=== PATIENT | male | born 1975 | race African-American/Black ===

== ENCOUNTER 2017-01-31 09:19 | Emergency (ER) | payer SELFPAY ==
[2017-01-31 09:29] LABS: BASOPHIL 0.2 % (0-2); EOSINOPHIL 0.4 % (0-5); HCT 42.6 % (42.0-52.0); HGB 14.3 g/dl (13.2-18.0); LYMPHOCYTE 23.3 % (15-48); MCH 30.2 pg (25.0-31.0); MCHC 33.6 g/dL (32.0-36.0); MCV 90.1 fL (78.0-100.0); MONOCYTE 8.8 % (0-12); MPV 9.2 fL (6.0-9.5); NEUTROPHIL 67.3 % (41-80); PLT 306 K/uL (150-400); RBC 4.73 M/uL (4.70-6.00); RDW 14.5 % (11.5-14.0); WBC 8.3 K/uL (4.0-10.5)
[2017-01-31 09:50] LABS: CREATININE 0.9 mg/dL (0.7-1.2); POTASSIUM 3.9 mmol/L (3.5-5.1)
== END 2017-01-31 10:56 | disposition home or self-care (01) ==
LOC: FER 09:19
PROVIDERS: Internal Medicine
DX: I10 Essential (primary) hypertension (principal); F17.200 Nicotine dependence, unspecified, uncomplicated
CPT/HCPCS: 36415; 71010; 80048; 85025; 93005; J1885

== ENCOUNTER 2021-01-27 09:37 | Emergency (ER) | payer OTHER ==
[~2021-01-27 09:37] MED LIST: BACLOFEN 10MG T10 MG PO; NAPROSYN500 MG PO; PRINIVIL20 MG PO
[2021-01-27 10:49] LABS: BASOPHIL 0.2 % (0-2); EOSINOPHIL 0.2 % (0-5); HCT 43.2 % (42.0-52.0); HGB 13.9 g/dl (13.2-18.0); LYMPHOCYTE 22.7 % (15-48); MCH 29.3 pg (25.0-31.0); MCHC 32.2 g/dL (32.0-36.0); MCV 91.1 fL (78.0-100.0); MONOCYTE 6.8 % (0-12); MPV 9.8 fL (6.0-9.5); NEUTROPHIL 69.2 % (41-80); NRBC 0; PLT 264 K/uL (150-400); RBC 4.74 M/uL (4.70-6.00); RDW 13.3 % (11.5-14.0); WBC 8.8 K/uL (4.0-10.5)
[2021-01-27 10:58] LABS: ALBUMIN 4.2 g/dL (3.4-5.0); BILIRUBIN - TOTAL 0.8 mg/dL (0.2-1.0); BUN/CREAT RATIO (CALC) 18.1 RATIO; CREATININE 0.94 mg/dL (0.67-1.17); POTASSIUM 3.9 mmol/L (3.5-5.1); TOTAL PROTEIN 7.2 g/dL (6.4-8.2)
[2021-01-27] MEDS ORDERED: PRINIVIL20 MG PO (11:31)
[2021-01-27] MEDS ORDERED: NORCO 5-325 TA1 EACH PO (11:31)
[2021-01-27 12:19] LABS: BILIRUBIN 1+ mg/dL (NEGATIVE); BLOOD 1+ Ery/uL (NEGATIVE); CLARITY CLEAR (CLEAR); COLOR YELLOW (YELLOW); GLUCOSE (U) NORMAL (NORMAL); LEUKOCYTES NEGATIVE Leu/uL (NEGATIVE); NITRITE NEGATIVE (NEGATIVE); PROTEIN NEGATIVE (NEGATIVE); SPECIFIC GRAVITY >=1.030 (1.001-1.030); pH 5.5 (5.0-9.0)
[2021-01-27 12:30] LABS: BACTERIA TRACE; SQUAMOUS EPITHELIAL CELLS RARE
== END 2021-01-27 11:59 | disposition home or self-care (01) ==
LOC: FER 09:37
PROVIDERS: Emergency Medicine
DX: I10 Essential (primary) hypertension (principal); R94.31 Abnormal electrocardiogram [ECG] [EKG]; M25.512 Pain in left shoulder; F17.200 Nicotine dependence, unspecified, uncomplicated; Z79.899 Other long term (current) drug therapy
CPT/HCPCS: 36415; 71045; 73030; 80053; 81001; 83880; 84484; 85025; 93005; J3490

== ENCOUNTER 2022-02-07 10:35 | Emergency (ER) | payer MEDICAID ==
[~2022-02-07 10:35] MED LIST changes: +NORCO 5-325 TA1 EACH PO
[2022-02-07 11:40] LABS: BASOPHIL 0.5 % (0-2); EOSINOPHIL 0.5 % (0-5); HCT 42.4 % (42.0-52.0); HGB 13.9 g/dl (13.2-18.0); LYMPHOCYTE 24.4 % (15-48); MCH 29.7 pg (25.0-31.0); MCHC 32.8 g/dL (32.0-36.0); MCV 90.6 fL (78.0-100.0); MONOCYTE 6.8 % (0-12); MPV 10.6 fL (6.0-9.5); NEUTROPHIL 67.6 % (41-80); NRBC 0; PLT 234 K/uL (150-400); RBC 4.68 M/uL (4.70-6.00); RDW 12.8 % (11.5-14.0); WBC 8.1 K/uL (4.0-10.5)
[2022-02-07 11:45] LABS: INR 0.99 (0.9-1.2); PROTHROMBIN TIME 12.5 SECONDS (11.8-13.4); PTT 26.5 SECONDS (24.4-34.7)
[2022-02-07 11:53] LABS: ALBUMIN 3.8 g/dL (3.4-5.0); BILIRUBIN - TOTAL 0.7 mg/dL (0.2-1.0); BUN/CREAT RATIO (CALC) 10.8 RATIO; CREATININE 1.02 mg/dL (0.67-1.17); GLOBULIN (CALCULATION) 3.1 g/dL; TOTAL PROTEIN 6.9 g/dL (6.4-8.2)
[2022-02-07 13:07] LABS: CORONAVIRUS 2019 SARS-COV-2 NEGATIVE (NEGATIVE); INFLUENZA A NAA NEGATIVE (NEGATIVE)
== END 2022-02-07 17:06 | disposition other institution (70) ==
LOC: FER 10:35
PROVIDERS: Emergency Medicine
DX: I63.9 Cerebral infarction, unspecified (principal); R47.1 Dysarthria and anarthria; R27.0 Ataxia, unspecified; I69.354 Hemiplegia and hemiparesis following cerebral infarction affecting left non-dominant side; I10 Essential (primary) hypertension; Z91.19 Patient's noncompliance with other medical treatment and regimen; Z20.822 Contact with and (suspected) exposure to COVID-19
CPT/HCPCS: 36415; 70450; 70551; 71045; 80053; 80061; 84484; 85025; 85610; 85730; 93005; J3490; Q9967; U0002

== ENCOUNTER 2022-03-18 23:49 | Emergency (ER) | payer OTHER ==
[2022-03-19 02:11] LABS: BASOPHIL 0.4 % (0-2); EOSINOPHIL 1.1 % (0-5); HCT 38.2 % (42.0-52.0); HGB 12.5 g/dl (13.2-18.0); MCH 29.1 pg (25.0-31.0); MCHC 32.7 g/dL (32.0-36.0); MCV 88.8 fL (78.0-100.0); MONOCYTE 8.6 % (0-12); MPV 9.7 fL (6.0-9.5); NEUTROPHIL 55.6 % (41-80); NRBC 0; PLT 234 K/uL (150-400); RDW 12.6 % (11.5-14.0); WBC 7.4 K/uL (4.0-10.5)
[2022-03-19 02:48] LABS: ALBUMIN 3.9 g/dL (3.4-5.0); BILIRUBIN - TOTAL 0.4 mg/dL (0.2-1.0); BUN/CREAT RATIO (CALC) 18.5 RATIO; CREATININE 0.92 mg/dL (0.67-1.17); GLOBULIN (CALCULATION) 3.2 g/dL; TOTAL PROTEIN 7.1 g/dL (6.4-8.2)
[2022-03-19] MEDS ORDERED: NORCO 5-325 TA1 EACH PO (03:35)
== END 2022-03-19 00:34 | disposition home or self-care (01) ==
LOC: FER 23:49
PROVIDERS: Internal Medicine
DX: R51.9 Headache, unspecified (principal); M79.604 Pain in right leg; M79.605 Pain in left leg; G37.9 Demyelinating disease of central nervous system, unspecified; I10 Essential (primary) hypertension; F17.210 Nicotine dependence, cigarettes, uncomplicated; Z86.73 Personal history of transient ischemic attack (TIA), and cerebral infarction without residual deficits; Z28.310 Unvaccinated for COVID-19
CPT/HCPCS: 36415; 70450; 80053; 84145; 85025; 96372; J3030; J3490

== ENCOUNTER 2022-07-10 12:50 | Emergency (ER) | payer OTHER ==
[2022-07-10 13:21] LABS: BASOPHIL 0.4 % (0-2); EOSINOPHIL 1.1 % (0-5); HCT 40.7 % (42.0-52.0); HGB 13.5 g/dl (13.2-18.0); LYMPHOCYTE 25.3 % (15-48); MCH 29.7 pg (25.0-31.0); MCHC 33.2 g/dL (32.0-36.0); MCV 89.5 fL (78.0-100.0); MONOCYTE 7.8 % (0-12); MPV 9.5 fL (6.0-9.5); NEUTROPHIL 65.2 % (41-80); NRBC 0; PLT 236 K/uL (150-400); RBC 4.55 M/uL (4.70-6.00); RDW 12.7 % (11.5-14.0); WBC 8.1 K/uL (4.0-10.5)
[2022-07-10 13:42] LABS: BUN/CREAT RATIO (CALC) 16.7 RATIO; CREATININE 0.9 mg/dL (0.67-1.17); POTASSIUM 4.2 mmol/L (3.5-5.1)
== END 2022-07-11 03:05 | disposition other institution (70) ==
LOC: FER 12:50
PROVIDERS: Emergency Medicine
DX: I63.81 Other cerebral infarction due to occlusion or stenosis of small artery (principal); R47.01 Aphasia; R47.1 Dysarthria and anarthria; G83.14 Monoplegia of lower limb affecting left nondominant side; R29.705 NIHSS score 5; I10 Essential (primary) hypertension; F17.200 Nicotine dependence, unspecified, uncomplicated
CPT/HCPCS: 36415; 70450; 70551; 71045; 80048; 84484; 85025; 93005; J2270; J2405; Q9967